=== PATIENT | female | born 1970 ===

== ENCOUNTER → 2024-11-20 10:23 | Outpatient (CLI) | payer OTHER ==
[2024-11-20 11:27] LABS: PH,URINE 7.5 (5.0-8.0); URINE APPEARANCE Clear; URINE BILIRRUBIN Negative (NEGATIVE); URINE BLOOD Small; URINE COLOR Yellow; URINE GLUCOSE Negative (NEGATIVE); URINE KETONE Negative (NEGATIVE); URINE LEUKOCYTE Small; URINE NITRATE Negative; URINE PROTEIN Trace (NEGATIVE); URINE UROBILINOGEN 0.2 E.U./dl
[2024-11-20 11:28] LABS: URINE BACTERIA 144.4 uL (0.0-1933); URINE EPITHELIAL CELLS 18.5 uL (0.0-38.8); URINE WBC 16.7 uL (0.0-23.2)
[2024-11-20 11:29] LABS: HEMATOCRIT 32.6 % (36.0-45.00); HEMOGLOBIN 10.3 g/dL (12.0-15.00); MEAN CORPUSCULAR HEMOGLOBIN 21.6 pg (27.00-32.0); MEAN CORPUSCULAR HGB CONC 31.4 g/dl (32.0-36.0); PLATELET COUNT 365 K/uL (150-450); RED BLOOD COUNT 4.76 M/uL (4.00-6.00)
[2024-11-20 11:30] LABS: MEAN CELL VOLUME 68.6 fL (80.00-100.00)
[2024-11-20 12:07] LABS: ALBUMIN 4.2 gm/dL (3.4-5.0); BILIRUBIN TOTAL 0.44 mg/dL (0.3-1.2); CALCIUM 9.3 mg/dL (8.5-10.1); CHOL HDL RATIO 4.8 (0-5.0); CREATININE SERUM 0.56 mg/dL (0.55-1.02); GFR 112.39; GLOBULINA 3.6 G/DL (2.4-3.5); POTASSIUM 4.78 mEq/L (3.5-5.1); TOTAL PROTEIN 7.8 gm/dL (6.4-8.2); TSH 1.11 uIU/mL (0.358-3.74)
== END | disposition home or self-care (01) ==
LOC: LAB 10:23
DX: N39.0 Urinary tract infection, site not specified (principal); D51.9 Vitamin B12 deficiency anemia, unspecified; R94.5 Abnormal results of liver function studies; E78.9 Disorder of lipoprotein metabolism, unspecified; E03.8 Other specified hypothyroidism; E11.9 Type 2 diabetes mellitus without complications; E55.9 Vitamin D deficiency, unspecified

== ENCOUNTER 2024-11-20 11:41 | Outpatient (CLI) | payer OTHER | END 2024-11-20 11:47 | disposition home or self-care (01) | LOC: MAMO-SONO 11:41 | PROVIDERS: ATTEND Specialist | DX: N63 Unspecified lump in breast (principal); N64.9 Disorder of breast, unspecified ==